=== PATIENT | female | born 1960 | race Caucasian/White ===

== ENCOUNTER → 2020-07-10 | Outpatient (CLI) | payer BC, OTHER ==
[2020-07-10 14:03] LABS: HEMOGLOBIN 12.7 gm/dl (12.3-15.3); RED BLOOD COUNT 4.19 M/UL (4.00-5.10); WHITE BLOOD COUNT 5.9 K/UL (4.5-11.0)
[2020-07-10 14:21] LABS: BUN/CREATININE RATIO 18 (0-10)
== END ==
LOC: LAB 13:02
PROVIDERS: Surgery
DX: K21.9 Gastro-esophageal reflux disease without esophagitis (principal); R00.1 Bradycardia, unspecified
CPT/HCPCS: 36415; 71046; 80048; 85025; 93005